=== PATIENT | male | born 1975 | race Caucasian/White ===

== ENCOUNTER 2018-01-14 10:44 | Observation (INO) | payer SELFPAY, OTHER ==
[2018-01-14] MEDS: SOD CHLORIDE 0.9% 1,000 ML IV (11:18)
[2018-01-14] MEDS: OXYCODONE/ACETAMINOPHEN (5/325) TAB PO (11:19)
[2018-01-14] MEDS: KETOROLAC 15 MG INJ IV (11:19)
[2018-01-14 11:28] LABS: ADD MAN DIFF? NO
[2018-01-14 11:36] LABS: WHITE BLOOD COUNT 8.4 10^3/ul (4.8-10.8)
[2018-01-14 11:36] LABS: BASOPHIL # 0.1 10^3/ul (0.0-0.1); BASOPHILS % 0.6 % (0.0-2.0); EOSINOPHILS # 0.1 10^3/ul (0.0-0.5); EOSINOPHILS % 1.2 % (0.0-7.0); HEMATOCRIT 41.8 % (42.0-52.0); HEMOGLOBIN 14.2 g/dl (14.0-18.0); LYMPHOCYTES # 1.7 10^3/ul (0.8-2.9); LYMPHOCYTES % 20.7 % (15.0-51.0); MEAN CORPUSCULAR HEMOGLOBIN 30.9 pg (29.0-33.0); MEAN CORPUSCULAR VOLUME 91.1 fl (82.0-101.0); MEAN PLATELET VOLUME 10.7 fl (7.4-10.4); MONOCYTE # 0.5 10^3/ul (0.3-0.9); MONOCYTES % 5.9 % (0.0-11.0); NEUTROPHILS % 71.4 % (39.0-77.0); PLATELET COUNT 183 10^3/UL (140-415); RED BLOOD COUNT 4.59 10^6/ul (4.70-6.10); RED CELL DISTRIBUTION WIDTH 12.9 % (11.5-14.5)
[2018-01-14 11:52] LABS: ALANINE AMINOTRANSFERASE 25 IU/L (13-69); ALBUMIN/GLOBULIN RATIO 1.48; ALKALINE PHOSPHATASE 49 IU/L (42-121); ANION GAP 12 (8-16); ASPARTATE AMINO TRANSFERASE 17 IU/L (15-46); BILIRUBIN,INDIRECT 0.6 mg/dl (0-1.1); BILIRUBIN,TOTAL 0.6 mg/dl (0.2-1.3); BLOOD UREA NITROGEN 18 mg/dl (7-20); CALCIUM 9.1 mg/dl (8.4-10.2); CARBON DIOXIDE 26 mmol/L (21-31); CHLORIDE 108 mmol/L (97-110); CREATININE 0.85 mg/dl (0.61-1.24); GLUCOSE 100 mg/dl (70-220); LIPASE 74 U/L (23-300); POTASSIUM 4.3 mmol/L (3.5-5.1); SODIUM 142 mmol/L (135-144); TOTAL PROTEIN 6.7 g/dl (6.1-8.1)
[2018-01-14 12:02] LABS: TROPONIN-I < 0.012 ng/ml (0.000-0.120)
[2018-01-14] MEDS: LORAZEPAM 2 MG INJ IV (12:37)
[2018-01-14] MEDS: HYDROmorphONE 0.5 MG/0.5 ML SYG IV ×2 (14:04→15:56)
[2018-01-14] MEDS ORDERED: OXYCODONE/ACETAMINOPHEN (5/325) TAB PO (15:00)
[2018-01-14] MEDS ORDERED: ACETAMINOPHEN 325 MG TAB PO (15:00)
[2018-01-14] MEDS ORDERED: NACL 0.9% 3 ML SYG IV (15:00)
[2018-01-14 15:37] LABS: CREATINE KINASE 58 IU/L (23-200)
[2018-01-14 15:44] LABS: C-REACTIVE PROTEIN < 0.5 mg/dl (0.0-0.9)
[2018-01-14 15:46] LABS: CK-MB 0.65 ng/ml (0.0-2.4)
[2018-01-14 15:53] LABS: FREE T4 (FREE THYROXINE) 1.55 ng/dl (0.64-1.79)
[2018-01-14 15:59] LABS: HEMOGLOBIN A1C 5.4 % (0-5.9)
[2018-01-14] MEDS ORDERED: ONDANSETRON 4 MG INJ IV (16:30)
[2018-01-14 16:44] LABS: ERYTHROCYTE SEDIMENTATION RATE 2 mm/Hr (0-15)
[2018-01-15] MEDS ORDERED: ENOXAPARIN 40 MG/0.4 ML SYG SC (09:00)
== END 2018-01-14 18:45 | disposition left against medical advice (07) ==
LOC: E/R 10:44 → PP2 13:46
DX: M54.89 Other dorsalgia (principal)
CPT/HCPCS: 36415; 74176; 80053; 82550; 82553; 83036; 83690; 84439; 84443; 84484; 85025; 85651; 86140; 93005; 96374; 96375; 99217; 99285-25